=== PATIENT | male | born 1965 | race Caucasian/White ===

== ENCOUNTER 2017-11-05 18:02 | Inpatient (IN) | payer BC ==
[~2017-11-05] VITALS: Ht 193 cm; Wt 152.3 kg
[~2017-11-05 18:02] MED LIST: ALTACE10 MG PO; AMARYL2 MG PO; ASPIRIN325 MG PO; AUGMENTIN875 MG PO; CLINDAMYCIN HC300 MG PO; CRESTOR10 MG PO; CRESTOR5 MG PO; DARVOCET-N 1001 EACH PO; ECPIRIN325 M1 PO; FORTAMET500 MG PO; GABAPENTIN300 MG PO; GLUCOPHAGE500 MG PO; HARVONI 90-4001 EACH PO; HUMALOG KW200 UNIT/1 SC; HYDROCHLOROTHIA25 MG PO; IMDUR60 MG PO; LANTUS 3 M100 UNITS1 SC; LEVEMIR FL100 UNIT/1 SC; LOPRESSOR50 MG PO; LORTAB 5-325 M1 EACH PO; NAPROSYN500 MG PO; NITROSTAT0.4 MG SL; NORVASC10 MG PO; NOVOLOG PE100 UNITS/ SC; POTASSIUM-9999 MG PO; PROMETHAZINE HC25 M1 PO; TOPROL XL50 MG PO; VICTOZA0.6 MG/0.1 SC; ZETIA10 MG PO; ZOFRAN ODT4 MG PO
[2017-11-05 18:53] LABS: HEMATOCRIT 44.5 % (38.0-50.0); HEMOGLOBIN 15.6 G/DL (12.5-16.6); MCH 31.8 PG (29.0-34.0); MCHC 35.1 G/DL (30.0-36.0); MCV 90.6 FL (86-99); PLATELET COUNT 227 K/uL (156-360); RBC DIS.WIDTH-CV 12.1 % (11.8-14.6); RBC DIS.WIDTH-SD 40.2 % (39-53); RED BLOOD COUNT 4.91 M/uL (4.00-5.50); WHITE BLOOD COUNT 12.3 K/uL (4.1-10.2)
[2017-11-05 19:09] LABS: ALBUMIN 4.2 G/DL (3.2-4.8); AMYLASE 32 IU/L (1-118); CHLORIDE 100 MEQ/L (99-109); POTASSIUM 3.9 MEQ/L (3.7-5.4); SODIUM 139 MEQ/L (136-147); TOTAL BILIRUBIN 0.8 MG/DL (0.0-1.0)
[2017-11-05 19:15] LABS: ALKALINE PHOSPHATASE 51 IU/L (3-129); ALT (GPT) 115 IU/L (3-49); AST (GOT) 101 IU/L (2-34); CREATININE 0.8 MG/DL (0.6-1.3); GFR ESTIMATE (CALCULATED) > 59 mL/min/ (58.99-99999); GLUCOSE 195 mg/dL (70-99); SERUM ETHYL ALCOHOL 171 mg/dL; TOTAL PROTEIN 7.8 G/DL (6.4-8.3); UREA NITROGEN (BUN) 17 mg/dL (9-23)
[2017-11-05] MEDS ORDERED: KLONOPIN0.5 M1 PO (23:33)
[2017-11-06 00:23] LABS: BACTERIA NONE SEEN /HPF; EPITHELIAL CELLS NONE SEEN /HPF; HYALINE CASTS 0-5 /LPF; MUCUS TRACE /LPF; WHITE BLOOD CELLS 0-5 /HPF (0-5)
[2017-11-06 00:31] LABS: AMPHETAMINE NEGATIVE (500 ng/mL); BARBITURATES NEGATIVE (200 ng/mL); BENZODIAZEPINES NEGATIVE (150 ng/mL); BUPRENORPHINE NEGATIVE (10 ng/mL); COCAINE NEGATIVE (150 ng/mL); METHADONE NEGATIVE (200 ng/mL); METHAMPHETAMINE NEGATIVE (500 ng/mL); OPIATES (MORPHINE) NEGATIVE (100 ng/mL); OXYCODONE NEGATIVE (100 ng/mL); PHENCYCLIDINE NEGATIVE (25 ng/mL); PROPOXYPHENE NEGATIVE (300 ng/mL); THC CANNABINOIDS PRESUMPTIVE POSITIVE (50 ng/mL); TRICYCLIC ANTIDEPRESSANTS NEGATIVE (300 ng/mL)
[2017-11-06 03:01] VITALS: BP 144/79
[2017-11-06 03:19] LABS: GAMMA-GT 106 IU/L (4-73)
[2017-11-06 04:52] VITALS: BP 170/78
[2017-11-06 05:43] LABS: HEMOGLOBIN 13.3 G/DL (12.5-16.6); MCH 30.9 PG (29.0-34.0); MCHC 34.1 G/DL (30.0-36.0); MCV 90.5 FL (86-99); PLATELET COUNT 197 K/uL (156-360); RBC DIS.WIDTH-CV 12.3 % (11.8-14.6); RED BLOOD COUNT 4.31 M/uL (4.00-5.50); WHITE BLOOD COUNT 10.9 K/uL (4.1-10.2)
[2017-11-06 06:07] LABS: ALBUMIN 3.9 G/DL (3.2-4.8); ALKALINE PHOSPHATASE 39 IU/L (3-129); ALT (GPT) 116 IU/L (3-49); AST (GOT) 85 IU/L (2-34); CHLORIDE 103 MEQ/L (99-109); CREATININE 0.8 MG/DL (0.6-1.3); GFR ESTIMATE (CALCULATED) > 59 mL/min/ (58.99-99999); GLUCOSE 138 mg/dL (70-99); SODIUM 139 MEQ/L (136-147); TOTAL PROTEIN 6.7 G/DL (6.4-8.3); UREA NITROGEN (BUN) 16 mg/dL (9-23)
[2017-11-06 06:15] LABS: TOTAL BILIRUBIN 1.1 MG/DL (0.0-1.0)
[2017-11-06 07:53] VITALS: BP 151/79
[2017-11-06 11:30] VITALS: BP 132/81
[2017-11-06 15:25] VITALS: BP 159/86
[2017-11-06 23:50] VITALS: BP 125/74
[2017-11-07 05:34] LABS: HEMATOCRIT 39.6 % (38.0-50.0); HEMOGLOBIN 13.3 G/DL (12.5-16.6); MCH 30.9 PG (29.0-34.0); MCHC 33.6 G/DL (30.0-36.0); MCV 92.1 FL (86-99); PLATELET COUNT 173 K/uL (156-360); RBC DIS.WIDTH-CV 12.4 % (11.8-14.6); RBC DIS.WIDTH-SD 41.3 % (39-53); WHITE BLOOD COUNT 8.7 K/uL (4.1-10.2)
[2017-11-07 06:04] LABS: ALBUMIN 3.7 G/DL (3.2-4.8); ALKALINE PHOSPHATASE 42 IU/L (3-129); ALT (GPT) 90 IU/L (3-49); AST (GOT) 53 IU/L (2-34); CHLORIDE 103 MEQ/L (99-109); CREATININE 0.9 MG/DL (0.6-1.3); GFR ESTIMATE (CALCULATED) > 59 mL/min/ (58.99-99999); GLUCOSE 174 mg/dL (70-99); POTASSIUM 4.3 MEQ/L (3.7-5.4); SODIUM 139 MEQ/L (136-147); TOTAL BILIRUBIN 1.3 MG/DL (0.0-1.0); TOTAL PROTEIN 6.6 G/DL (6.4-8.3); UREA NITROGEN (BUN) 14 mg/dL (9-23)
[2017-11-07 08:31] VITALS: BP 136/80
[2017-11-07 09:27] LABS: HEMOGLOBIN A1c (GLYCOHEMOGLOB) 7.8 % (Below 5.7)
[2017-11-07 15:53] VITALS: BP 105/82
[2017-11-07 23:30] VITALS: BP 122/65
[2017-11-08 03:52] VITALS: BP 121/62
[2017-11-08 04:51] LABS: HEMATOCRIT 39.4 % (38.0-50.0); HEMOGLOBIN 13.5 G/DL (12.5-16.6); MCH 31.1 PG (29.0-34.0); MCHC 34.3 G/DL (30.0-36.0); MCV 90.8 FL (86-99); PLATELET COUNT 179 K/uL (156-360); RBC DIS.WIDTH-SD 39.9 % (39-53); RED BLOOD COUNT 4.34 M/uL (4.00-5.50); WHITE BLOOD COUNT 7.8 K/uL (4.1-10.2)
[2017-11-08 05:13] LABS: ALBUMIN 3.8 g/dL (3.2-4.8); CHLORIDE 102 mEq/L (99-109); POTASSIUM 4.6 mEq/L (3.7-5.4); SODIUM 140 mEq/L (136-147)
[2017-11-08 05:15] LABS: GLUCOSE 159 mg/dL (70-99); TOTAL PROTEIN 6.7 g/dL (6.4-8.3)
[2017-11-08 05:17] LABS: TOTAL BILIRUBIN 1.5 mg/dL (0.0-1.0)
[2017-11-08 05:19] LABS: ALKALINE PHOSPHATASE 47 IU/L (3-129); CREATININE 0.8 mg/dL (0.6-1.3); GFR ESTIMATE (CALCULATED) > 59 mL/min/ (58.99-99999)
[2017-11-08 05:20] LABS: AST (GOT) 67 IU/L (2-34); UREA NITROGEN (BUN) 12 mg/dL (9-23)
[2017-11-08 05:22] LABS: ALT (GPT) 105 IU/L (3-49)
[2017-11-08 08:37] VITALS: BP 133/71
[2017-11-08 16:43] VITALS: BP 133/70
[2017-11-09 00:09] VITALS: BP 119/63
[2017-11-09 05:47] LABS: ALBUMIN 3.5 G/DL (3.2-4.8); ALKALINE PHOSPHATASE 35 IU/L (3-129); ALT (GPT) 82 IU/L (3-49); AST (GOT) 52 IU/L (2-34); CHLORIDE 98 MEQ/L (99-109); CREATININE 0.9 MG/DL (0.6-1.3); GFR ESTIMATE (CALCULATED) > 59 mL/min/ (58.99-99999); GLUCOSE 179 mg/dL (70-99); SODIUM 137 MEQ/L (136-147); TOTAL BILIRUBIN 1.1 MG/DL (0.0-1.0); TOTAL PROTEIN 6.9 G/DL (6.4-8.3); UREA NITROGEN (BUN) 15 mg/dL (9-23)
[2017-11-09 05:54] LABS: POTASSIUM 3.5 MEQ/L (3.7-5.4)
[2017-11-09 07:40] VITALS: BP 124/71
[2017-11-09] MEDS ORDERED: OXYCODONE HCL5 MG PO (12:28)
[2017-11-09] MEDS ORDERED: OXAYDO5 MG PO (15:32)
== END 2017-11-09 17:43 | disposition home or self-care (01) | DRG 89 ==
LOC: EME 18:02 → 3EAST 11-06 00:13 → EDOF 11-06 00:13 → ENRESERV 11-06 00:15 → 3EAST 11-06 02:22
PROVIDERS: Emergency Medicine; Surgery
DX: S06.0X1A Concussion with loss of consciousness of 30 minutes or less, initial encounter (principal); S37.011A Minor contusion of right kidney, initial encounter; S80.12XA Contusion of left lower leg, initial encounter; S20.211A Contusion of right front wall of thorax, initial encounter; S00.03XA Contusion of scalp, initial encounter; V86.55XA Driver of 3- or 4- wheeled all-terrain vehicle (ATV) injured in nontraffic accident, initial encounter; F10.129 Alcohol abuse with intoxication, unspecified; Y90.6 Blood alcohol level of 120-199 mg/100 ml; R26.2 Difficulty in walking, not elsewhere classified; Z91.81 History of falling; D72.828 Other elevated white blood cell count; E66.01 Morbid (severe) obesity due to excess calories; Z68.41 Body mass index [BMI] 40.0-44.9, adult; E11.65 Type 2 diabetes mellitus with hyperglycemia; I10 Essential (primary) hypertension; E78.5 Hyperlipidemia, unspecified; B19.20 Unspecified viral hepatitis C without hepatic coma; F41.0 Panic disorder [episodic paroxysmal anxiety]; G89.29 Other chronic pain; M54.9 Dorsalgia, unspecified; F12.90 Cannabis use, unspecified, uncomplicated; F17.210 Nicotine dependence, cigarettes, uncomplicated; Z79.4 Long term (current) use of insulin
CPT/HCPCS: 70450; 70486; 71260; 72125; 72129; 72132; 73130; 73590; 73700; 74177; 80053; 81015; 82150; 82948; 82977; 83036; 84999; 85027; 86850; 86900; 86901; 93005; 94640; 94640 76; 97530 GO; 99202; 99281; 99285; G0480; J1170; J1815; J3010

== ENCOUNTER 2017-11-13 10:41 | Emergency (ER) | payer BC ==
[~2017-11-13] VITALS: Ht 193 cm; Wt 13.6 kg
[~2017-11-13 10:41] MED LIST changes: +KLONOPIN0.5 M1 PO; +OXAYDO5 MG PO; +OXYCODONE HCL5 MG PO
[2017-11-13 12:34] LABS: BASOPHIL (%) 0.5 % (0-1); BASOPHIL COUNT 0.1 K/uL (0-0.1); EOSINOPHIL (%) 5.3 % (0-5); EOSINOPHIL COUNT 0.5 K/uL (0-0.3); HEMATOCRIT 42.2 % (38.0-50.0); HEMOGLOBIN 14.7 G/DL (12.5-16.6); IMMATURE GRANULOCYTE (%) 0.5 % (0.0-0.7); LYMPHOCYTE (%) 18.1 % (15-42); LYMPHOCYTE COUNT 1.8 K/uL (1.0-2.8); MCH 31.3 PG (29.0-34.0); MCHC 34.8 G/DL (30.0-36.0); MCV 89.8 FL (86-99); MONOCYTE COUNT 0.7 K/uL (0-0.8); NEUTROPHIL (%) 68.6 % (45-76); NEUTROPHIL COUNT 6.8 K/uL (1.8-6.4); RBC DIS.WIDTH-CV 11.9 % (11.8-14.6); RBC DIS.WIDTH-SD 39.2 % (39-53); WHITE BLOOD COUNT 9.9 K/uL (4.1-10.2)
[2017-11-13 12:39] LABS: PLATELET COUNT 268 K/uL (156-360)
[2017-11-13 12:42] LABS: CHLORIDE 98 mEq/L (99-109); SODIUM 136 mEq/L (136-147)
[2017-11-13 12:43] LABS: GLUCOSE 222 mg/dL (70-99)
[2017-11-13 12:47] LABS: CREATININE 0.9 mg/dL (0.6-1.3); GFR ESTIMATE (CALCULATED) > 59 mL/min/ (58.99-99999)
[2017-11-13 12:48] LABS: UREA NITROGEN (BUN) 17 mg/dL (9-23)
[2017-11-13] MEDS ORDERED: KETOROLAC TROME10 MG PO (17:05)
[2017-11-13 18:15] VITALS: BP 143/78
== END 2017-11-13 18:17 | disposition home or self-care (01) ==
LOC: EME 10:41
PROVIDERS: Emergency Medicine
DX: M79.662 Pain in left lower leg (principal); M79.89 Other specified soft tissue disorders; S80.12XD Contusion of left lower leg, subsequent encounter; V86.59XD Driver of other special all-terrain or other off-road motor vehicle injured in nontraffic accident, subsequent encounter; E11.9 Type 2 diabetes mellitus without complications; Z79.4 Long term (current) use of insulin; Z79.82 Long term (current) use of aspirin; I10 Essential (primary) hypertension; E78.5 Hyperlipidemia, unspecified; B19.20 Unspecified viral hepatitis C without hepatic coma; F17.210 Nicotine dependence, cigarettes, uncomplicated; F41.9 Anxiety disorder, unspecified; E66.9 Obesity, unspecified; G89.29 Other chronic pain
CPT/HCPCS: 73718; 80048; 85025; 93971; 99281; 99285; J1885